=== PATIENT | male | born 1965 | race Hispanic/Latino ===

== ENCOUNTER 2017-07-29 05:24 | Emergency (ER) | payer SELFPAY ==
[2017-07-29 05:54] VITALS: TEMP 97.9
[2017-07-29] MEDS ORDERED: MORPHINE SULFATE INJ 10 MG/ML VIAL IV ONE (05:54)
[2017-07-29] MEDS ORDERED: ONDANSETRON ODT 8 MG TAB SL ONE (05:54)
[2017-07-29] MEDS ORDERED: LIDOCAINE VIS-MYLANTA 30 ML UD PO ONE ×2 (05:54→05:57)
[2017-07-29 05:57] VITALS: O2SAT 99
[2017-07-29] MEDS ORDERED: ONDANSETRON ODT 8 MG TAB ONE (05:57)
[2017-07-29] MEDS ORDERED: MORPHINE SULFATE INJ 10 MG/ML VIAL ONE (05:58)
--- NOTE | 2017-07-29 06:00 | ED.PDOC ---
History of Present Illness - General Source: patient, family Exam Limitations: no limitations - History of Present Illness Initial Comments: the patient's a 52-year-old male presenting to the emergency room secondary to abdominal pain that started at around 10 PM. He has had one episode of vomiting and he has had some nausea. He reports having had several episodes like this over the last few years but most of them have resolved within a couple of hours. This one has not. The patient is in obvious discomfort and is unable to remain still. He prefers leaning over on the edge of the bed and rocking back and forth. He does have some discomfort with walking. His abdomen is moderately distended and tympanic. Pain localizes to the epigastric and right upper quadrant. He has had an appendix removed in the past. No history of diverticulitis. No family history of ulcerative colitis or Crohn's. No new medications. No history of any GI bleed or pancreatitis in the past. No history of any obstruction in the past. Timing/Duration: 4-6 hours, constant, getting worse Severity: severe Improving Factors: movement Worsening Factors: rest Associated Symptoms: loss of appetite, malaise, nausea/vomiting, shortness of breath - mild <Agustin Pope L - Last Filed: 07/29/17 06:53> <Leland Webb - Last Filed: 07/29/17 08:16> - General Chief Complaint: Abdominal Pain Stated Complaint: mid abdomen pain radiating to back, nausea Time Seen by Provider: 07/29/17 05:50 - History of Present Illness Allergies/Adverse Reactions: Allergies NO KNOWN ALLERGY Allergy (Verified 07/29/17 05:40) Home Medications: Ambulatory Orders Promethazine W/Codeine Syr [Phenergan With Codeine Syrup] 10 ml PO TID #90 ml Ranitidine HCl 150 mg PO BID #60 tab 07/29/17 Review of Systems - Review of Systems Constitutional: States: diaphoresis, malaise EENTM: States: no symptoms reported Respiratory: States: see HPI Cardiology: States: no symptoms reported Gastrointestinal/Abdominal: States: abdominal pain, nausea, vomiting Genitourinary: States: no symptoms reported Musculoskeletal: States: no symptoms reported Skin: States: no symptoms reported Neurological: States: anxiety Endocrine: States: no symptoms reported Hematologic/Lymphatic: States: no symptoms reported All other Systems: No Change from Baseline <Agustin Pope - Last Filed: 07/29/17 06:53> Past Medical History (General) - Patient Medical History Hx Seizures: No Hx Stroke: No Hx Dementia: No Hx Asthma: No Hx of COPD: No Hx Cardiac Disorders: No Hx Congestive Heart Failure: No Hx Pacemaker: No Hx Hypertension: No Hx Thyroid Disease: No Hx Diabetes: No Hx Gastroesophageal Reflux: No Hx Renal Disease: No Hx Cancer: No Hx of HIV: No Hx Hepatitis C: No Hx MRSA: No Surgical History: appendectomy - Vaccination History Hx Tetanus, Diphtheria Vaccination: No Hx Influenza Vaccination: No - Social History Hx Tobacco Use: Yes Hx Alcohol Use: No Hx Substance Use: No Hx Substance Use Treatment: No Hx Depression: No <Agustin Pope Last Filed: 07/29/17 06:53> Family Medical History - Family History Mother Family History: Unknown <Agustin Pope Last Filed: 07/29/17 06:53> Physical Exam - Physical Exam General Appearance: Alert, Anxious, Ill Appearing, Restless Eye Exam: bilateral normal Ears, Nose, Throat: hearing grossly normal, normal ENT inspection, normal pharynx Neck: full range of motion, supple, normal inspection Respiratory: lungs clear, normal breath sounds, no respiratory distress, no accessory muscle use Cardiovascular/Chest: normal peripheral pulses, no edema, bradycardia Peripheral Pulses: radial,right: 2+, radial,left: 2+, dorsalis pedis,right: 2+, dorsalis pedis,left: 2+ Gastrointestinal/Abdominal: distended, tenderness Rectal Exam: deferred Back Exam: normal inspection, no CVA tenderness, no vertebral tenderness Extremity: normal range of motion, non-tender, normal inspection, no pedal edema , normal capillary refill 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 He has had episodes like this before. x-ray does show significant constipation and the patient is receiving a dose of milk of magnesia. That may be the source in its entirety of his abdominal pain however, he does have a moderate elevation of his white blood cell count and there is some elevation of his AST and ALT. He denies any regular alcohol use or any history of hepatitis. Given the area of pain a CT scan is being ordered. This is to help rule out gallbladder pathology and possibly diverticulitis. The patient will be followed by the oncoming physician. A blood culture has been ordered. No antibiotics have been given as of yet. 1 L of normal saline has been ordered primarily to help with the constipation issue given the dehydration noted on his urinalysis. - Results/Orders Results/Orders: Laboratory Tests 07/29/17 07/29/17 07/29/17 05:40 05:40 05:40 WBC 12.9 H RBC 5.61 Hgb 16.2 Hct 47.5 MCV 84.7 MCH 28.9 MCHC 34.2 RDW 13.9 Plt Count 183 MPV 11.6 H Absolute Neuts (auto) 10.80 H Absolute Lymphs (auto) 1.50 Absolute Monos (auto) 0.40 Absolute Eos (auto) 0.10 Absolute Basos (auto) 0.10 Neutrophils % 83.9 H Lymphocytes % 11.8 L Monocytes % 3.4 Eosinophils % 0.4 L Basophils % 0.5 PT 11.0 INR 0.970 PTT (SP) 28.7 D-Dimer, Quantitative < 230 Sodium 136 Potassium 3.7 Chloride 104 Carbon Dioxide 25 Anion Gap 10.7 L BUN 18 Creatinine 0.84 BUN/Creatinine Ratio 21.4 H Random Glucose 177 H Serum Osmolality 278.2 Calcium 9.2 Total Bilirubin 0.7 AST 112 H ALT 71 H Alkaline Phosphatase 77 Creatine Kinase 235 H* CK-MB (CK-2) 2.3 CK-MB (CK-2) % 0.90 Troponin I < 0.02 B-Natriuretic Peptide 14.5 Serum Total Protein 8.2 Albumin 4.6 Globulin 3.6 H Albumin/Globulin Ratio 1.3 Amylase 172 H Lipase 27 Urine Color Urine Appearance Urine pH Ur Specific [place] Urine Protein Urine Glucose (UA) Urine Ketones Urine Blood Urine Nitrite Urine Bilirubin Urine Urobilinogen Ur Leukocyte Esterase Urine RBC Urine WBC Ur Epithelial Cells Calcium Oxalate Crystal Urine Bacteria 07/29/17 06:10 WBC RBC Hgb Hct MCV MCH MCHC RDW Plt Count MPV Absolute Neuts (auto) Absolute Lymphs (auto) Absolute Monos (auto) Absolute Eos (auto) Absolute Basos (auto) Neutrophils % Lymphocytes % Monocytes % Eosinophils % Basophils % PT INR PTT (SP) D-Dimer, Quantitative Sodium Potassium Chloride Carbon Dioxide Anion Gap BUN Creatinine BUN/Creatinine Ratio Random Glucose Serum Osmolality Calcium Total Bilirubin AST ALT Alkaline Phosphatase Creatine Kinase CK-MB (CK-2) CK-MB (CK-2) % Troponin I B-Natriuretic Peptide Serum Total Protein Albumin Globulin Albumin/Globulin Ratio Amylase Lipase Urine Color Yellow Urine Appearance Sl cloudy Urine pH 5.5 Ur Specific [place] >= 1.030 Urine Protein 100 H Urine Glucose (UA) Negative Urine Ketones Trace Urine Blood Trace-intact H Urine Nitrite Negative Urine Bilirubin Small H Urine Urobilinogen 1.0 Ur Leukocyte Esterase Negative Urine RBC 0-1 Urine WBC 0-1 Ur Epithelial Cells 0 Calcium Oxalate Crystal 1+ Urine Bacteria 0 x-ray of the abdomen shows a large amount of stool. No perforation. No evidence of obstruction. <Agustin Pope L - Last Filed: 07/29/17 06:53> - EKG/XRAY/CT CT Ordered: Yes - ct/abd-no acute abnormalities <Leland Webb R - Last Filed: 07/29/17 08:16> Departure <Agustin Pope L - Last Filed: 07/29/17 06:53> - Departure Time of Disposition: 08:08 Diet: low fat, low cholesterol, other - Avoid spicy,greasy foods until better <Leland Webb R - Last Filed: 07/29/17 08:16> - Departure Clinical Impression: Abdominal pain Disposition: Discharge to Home or Self Care Condition: Fair Departure Forms: ED Discharge - Pt. Copy, Patient Portal Self Enrollment Instructions: DI for Abdominal Pain-Adult Prescriptions: Promethazine W/Codeine Syr [Phenergan With Codeine Syrup] 10 ml PO TID #90 ml Ranitidine HCl 150 mg PO BID #60 tab Home Medications: Ambulatory Orders Promethazine W/Codeine Syr [Phenergan With Codeine Syrup] 10 ml PO TID #90 ml Ranitidine HCl 150 mg PO BID #60 tab 07/29/17 Additional Instructions: NEED TO SIGN UP WITH PRIMARY MD FOR REFERRAL TO [facility]; [facility]-[phone]
[2017-07-29] MEDS ORDERED: SIMETHICONE 80 MG TAB PO ONE (06:01)
--- NOTE | 2017-07-29 06:29 | RAD ---
Procedure: XR ABDOMEN 2 VIEWS SUPINE ERECT Exam Date: 07/29/2017 Ordering Provider: Agustin Pope Clinical Indication: epigastric ruq pain 8 hours Comparison: None Findings: Chest is clear. There is no small or large bowel distention. Large colonic stool burden. There is no pneumoperitoneum. There are no suspicious calcifications. There is no acute skeletal abnormality. Impression: 1. No acute findings. 2. Large colonic stool burden. Electronically signed by: Denilson Wang MD 07/29/2017 6:28 AM [facility]
[2017-07-29] MEDS ORDERED: SODIUM CHLORIDE 0.9% 1000ML 1,000 ML IVS ONE (06:50)
[2017-07-29] MEDS ORDERED: MAGNESIUM HYDROXIDE 30 ML UD PO ONE (06:50)
--- NOTE | 2017-07-29 07:57 | CT ---
EXAM DESCRIPTION: Abdomen/Pelvis w/Contrast CLINICAL HISTORY: 52 years,Male,ruq abd pain, elev ast/alt, wbc 13k COMPARISON: None TECHNIQUE: Multiple axial tomographic images were obtained of the abdomen and pelvis with IV contrast and oral contrast. Then reconstructed in sagittal and coronal planes. This exam was performed using radiation doses that are As Low As Reasonably Achievable (ALARA). FINDINGS: The kidneys are unremarkable The adrenal glands are unremarkable . The spleen is unremarkable. The liver is unremarkable. The pancreas is unremarkable. The gallbladder is upper limits normal size. 4.1 cement diameter and over 12 cm in length. No intrahepatic biliary duct dilatation. In the common bile duct is about 5 mm in diameter. No pericholecystic fluid.. The included bowel is unremarkable. Stomach demonstrates a intraluminal mass which contains multiple small pockets air. It measures 2.5 cm in diameter. The appendix not seen present be surgically absent.. There is no free air, free fluid, masses, or significant adenopathy. Surrounding soft tissues and bony elements unremarkable. Lung bases are unremarkable. IMPRESSION: Gallbladder is borderline enlarged for the patient. But no other sinuses suggest acute findings. However if symptoms dictate would recommend ultrasound of the right upper quadrant. I do not see any radiopaque stones. There is a intraluminal mass within the stomach which is either some recently and poorly chewed food or could be a small bezor. However a recent medial should result in a empty gallbladder. Electronically signed by: Julio C Hinson MD 07/29/2017 7:56 AM [facility]
[2017-07-29 08:23] VITALS: BP 138/80
== END 2017-07-29 08:23 | disposition home or self-care (01) ==
LOC: ER 05:24
DX: R10.9 Unspecified abdominal pain (principal); Z87.891 Personal history of nicotine dependence
CPT/HCPCS: 36415; 74020; 74177; 80053; 81001; 82150; 82550; 82553; 83690; 83880; 84484; 85025; 85379; 85610; 85730; J2270; J7030